=== PATIENT | female | born 1970 | race Caucasian/White ===

== ENCOUNTER 2021-11-03 20:18 | Emergency (ER) | payer MEDICAID, OTHER ==
[~2021-11-03] VITALS: Ht 160 cm; Wt 59.0 kg
[2021-11-03 20:30] VITALS: BP 167/90
--- NOTE | 2021-11-03 20:33 | NUR ---
TO LOBBY A/W BED AMBULATORY
--- NOTE | 2021-11-03 22:07 | NUR ---
PT AMBULATED TO BED #7
[2021-11-03] MEDS ORDERED: KETOROLAC 60 MG/2 ML VIAL IM ONE (22:10)
--- NOTE | 2021-11-03 22:25 | NUR ---
51/F BIB SELF C/C [facility] INTERMITTENT 7/10 LEFT ARM PAIN RAD TO LEFT RIB CAGE X3 MONTHS. PER PATIENT SHE FEELS "TINGLING" AT TIMES. PATIENT DENIES CP/SOB/N/V/D/C/VISUAL CHANGES. PATIENT ROM INTACT. DENIES INJURY. NO DEFICITS NOTED. STATED SHE HAD A FOLLOW UP WITH PCP BUT MISSED HER APPT. PATIENT STATED THAT SHE IS CURRENTLY STRESSED AND EVERY TIME SHE FEELS STRESSED THE PAIN OCCURS. PATIENT STATED THAT SHE IS NERVOUS, BP 163/99. AWARE. PATIETN AAOX4 AND AMBULATORY. DENIES PMHX, RX NKA
--- NOTE | 2021-11-03 23:01 | NUR ---
BP REASSESSED 143/95
--- NOTE | 2021-11-03 23:27 | NUR ---
Dr. Boykin examining patient.
[2021-11-03] MEDS ORDERED: IBUP-2213 PO (23:37)
--- NOTE | 2021-11-03 23:42 | NUR ---
Patient discharged with v/s stable. Written and verbal after care instructions given MUSCULOSKELETAL PAIN and explained. Patient alert, oriented and verbalized understanding of instructions. Ambulatory with steady gait. All questions addressed prior to discharge. ID band removed. Patient advised to follow up with PMD. Rx of IBUPROFEN given.
[2021-11-03 23:43] VITALS: BP 143/95
--- NOTE | 2021-11-03 23:45 | NUR ---
The patient's care was reviewed and supervised by Karen Robins RN.
== END 2021-11-03 23:42 | disposition home or self-care (01) ==
LOC: MED 20:18
DX: M79.602 Pain in left arm (principal)
CPT/HCPCS: 93005; 96372; 99285; J1885